=== PATIENT | male | born 1990 | race Caucasian/White ===

== ENCOUNTER 2021-03-09 21:42 | Emergency (ER) | payer SELFPAY ==
[~2021-03-09] VITALS: Ht 190.5 cm; Wt 108.0 kg
[2021-03-09 22:02] VITALS: BP 159/90
--- NOTE | 2021-03-09 22:07 | PHYS DOC ---
Past Medical History Past Surgical History: No Surgical History General Adult EDM: Chief Complaint: OVERDOSE HPI: HPI: Patient is a 30 year old L who is on no prescription medications presents for evaluation of an accidental overdose. Patient admits to taking opiates in order to get high. Prior to arrival patient was found passed out in his car in a gas station parking lot. 1 was called. Upon EMS arrival patient was unresponsive pinpoint pupils decreased respiratory rate. Patient was treated with Narcan with improvement of mental status. On arrival patient is alert and oriented x4. He has no complaints at this time. Patient admits to taking opiate in order to get high. Patient states he brought the tablet on the street he is not sure what it is. Patient denies any suicidal or homicidal ideations. Review of Systems: Review of Systems: Review of systems: Constitutional symptoms- No fever, no chills. Eyes- No Discharge, No Visual Loss Respiratory symptoms- No shortness of breath, No wheezing, No Dyspnea on Exertion Cardiovascular Systems; No chest pain, No Palpitations, No syncope Gastrointestinal symptoms: NO abdominal pain, no nausea, no vomiting or diarrhea. Genitourinary symptoms: No dysuria. Musculoskeletal symptoms: No back pain No extremity pain. NEUROLOGICAL Symptoms: No headache, no generalized weakness; No focal Weakness Skin: No rash. Heart Score: C/O Chest Pain: N/A Risk Factors: Risk Factors: DM, Current or recent (<one month) smoker, HTN, HLP, family history of CAD, obesity. Risk Scores: Score 0 - 3: 2.5% MACE over next 6 weeks - Discharge Home Score 4 - 6: 20.3% MACE over next 6 weeks - Admit for Clinical Observation Score 7 - 10: 72.7% MACE over next 6 weeks - Early Invasive Strategies Allergies: Allergies: Allergies Coded Allergies Type Severity Reaction Last Updated Verified amoxicillin Allergy Intermediate Hives 03/09/21 Yes Physical Exam: PE: General: alert, no acute distress. Skin: warm, dry and intact. HENT: bilateral external ears normal, oropharynx moist, nose normal. Head:: Normocephalic, atraumatic. Neck: Trachea midline. Eyes: EOMI, Normal conjunctiva, No drainage CARDIOVASCULAR: Tachycardia RESPIRATORY: No respiratory distress Back: Full range of motion. Skin: Warm, dry, no erythema, no rash. MUSCULOSKELETAL: Full range of motion of bilateral upper and lower extremities. GASTROINTESTINAL: Abdomen soft without rebound or guarding. NEUROLOGICAL: Alert and noted to person, place and time. No neurological deficits observed Psychiatric: Cooperative. Normal judgment Current Patient Data: Vital Signs: Vital Signs Date Time Temp Pulse Resp B/P (MAP) Pulse Ox O2 Delivery O2 Flow Rate FiO2 03/09/21 21:48 99.8 127 18 163/95 93 Room Air 99.8 EKG: EKG: Performed at 2216 Rate [address] elevation No ST depression No acute VA [] Radiology/Procedures: Radiology/Procedures: [] Course & Med Decision Making: Course & Med Decision Making Pertinent Labs and Imaging studies reviewed. (See chart for details) [] Patient brought in for altered mental status. Patient treated by EMS with Narcan. Patient admitted to opioid use in order to get high. Patient only agreeable to IV fluids. Patient heart rate on arrival in the 120s 130s. Patient with no complaints. Patient was observed for over an hour--patient appears to be back at his baseline mental status. Patient discharged home. Benji Disclaimer: Benji Disclaimer: This electronic medical record was generated, in whole or in part, using a voice recognition dictation system. Departure Departure Impression: Primary Impression: Overdose Disposition: 01 HOME / SELF CARE / HOMELESS Condition: STABLE Patient Instructions: Overdose, Adult EDGAR WYNN I DO Mar 09, 2021 22:07
[2021-03-09] MEDS ORDERED: IV NORMAL SALINE 1000ML BAG 1,000 ML IV ONE (22:30)
== END 2021-03-09 23:07 | disposition home or self-care (01) ==
LOC: ER 21:42
DX: T40.2X1A Poisoning by other opioids, accidental (unintentional), initial encounter (principal); R41.82 Altered mental status, unspecified; Z88.1 Allergy status to other antibiotic agents; Y92.89 Other specified places as the place of occurrence of the external cause
CPT/HCPCS: 96360; 99283; J7030